=== PATIENT | female | born 1975 | race Caucasian/White ===

== ENCOUNTER 2019-01-24 14:17 | Emergency (ER) | payer OTHER ==
[~2019-01-24] VITALS: Ht 157.5 cm; Wt 77.0 kg
[~2019-01-24 14:17] MED LIST: NITR-58 PO; PHEN-538 PO
[2019-01-24 14:46] VITALS: BP 171/74; PULSE 89; RESP 19; Ht 157.5 cm; Wt 77.0 kg
[2019-01-24] MEDS ORDERED: KETOROLAC 30 MG INJ IM STA (15:14)
[2019-01-24] MEDS ORDERED: HYDROCODONE/APAP (5/325) TAB PO ONE (15:30)
[2019-01-24] MEDS ORDERED: CYCL10TA7 PO (16:09)
[2019-01-24] MEDS ORDERED: TRAM50TA2 PO (16:09)
--- NOTE | 2019-01-24 16:14 | ERD ---
ER Documentation Chief Complaint Chief Complaint NECK AND HEAD PAIN X 6 DAYS HPI 43-year-old female presents with 6-day history of pain in the neck area. She also has pain in the occipital area. She has a history of trauma. Started at work. Denies any specific inciting events. She denies any visual changes, vom iting, deficits, bowel or bladder incontinence, fevers, additional symptoms. ROS All systems reviewed and are negative except as per history of present illness. Medications Home Meds Active Scripts Cyclobenzaprine Hcl* (Cyclobenzaprine Hcl*) 10 Mg Tablet, 10 MG PO TID, #20 TAB Prov:TERRI LOWE MD 01/24/19 Tramadol HCl (Tramadol HCl) 50 Mg Tablet, 50 MG PO Q4 PRN for PAIN, #20 TAB Prov:TERRI LOWE MD 01/24/19 Phenazopyridine Hcl* (Pyridium*) 200 Mg Tab, 200 MG PO TID PRN for PAIN, #12 TAB 0 Refills Prov:IVY RAMSEY PA-C 11/28/15 Nitrofurantoin Monohyd Macrocr* (Macrobid*) 100 Mg Capsr, 100 MG PO BID, #14 CAP 0 Refills Prov:IVY RAMSEY PA-C 11/28/15 Reported Medications [None] No Conflict Check 04/11/12 Allergies Allergies: Coded Allergies: No Known Allergy (Unverified , 01/24/19) PMhx/Soc History of Surgery: Yes (TUBAL LIGATION, left hand) Anesthesia Reaction: No Hx Neurological Disorder: No Hx Respiratory Disorders: No Hx Cardiac Disorders: No Hx Psychiatric Problems: No Hx Miscellaneous Medical Probl: No Hx Alcohol Use: No Hx Substance Use: No Hx Tobacco Use: No FmHx Family History: No diabetes, No coronary disease, No other Physical Exam Vitals Vital Signs Date Temp Pulse Resp B/P (MAP) Pulse Ox O2 O2 Flow FiO2 Time Delivery Rate 01/24/19 99.8 89 19 171/74 99 14:46 (106) Physical Exam Const: No acute distress Head: Atraumatic Eyes: Normal Conjunctiva ENT: Normal External Ears, Nose and Mouth. Neck: Full range of motion. No meningismus. Resp: Clear to auscultation bilaterally Cardio: Regular rate and rhythm, no murmurs Abd: Soft, non tender, non distended. Normal bowel sounds Skin: No petechiae or rashes Back: No midline or flank tenderness Ext: No cyanosis, or edema Neur: Awake and alert Psych: Normal Mood and Affect Results 24 hrs Laboratory Tests Test 01/24/19 15:36 POC Beta HCG, Qualitative NEGATIVE Current Medications Medications Dose Sig/Farida Start Time Status Last (Trade) Ordered Route PRN Stop Time Admin Dose Reason Admin Ketorolac 30 mg ONCE STAT 01/24/19 DC 01/24/19 Tromethamine IM 15:14 15:44 (Toradol) 01/24/19 15:15 1 tab ONCE ONCE 01/24/19 DC 01/24/19 Acetaminophen PO 15:30 15:29 / 01/24/19 15:31 Hydrocodone Bitart ([place] (5/325)) Procedures/MDM X-ray C spine 3V Interpreted by me: Bones: No fracture Joints: No dislocation Foreign body: None impression-no acute findings on C-spine x-ray. Given Toradol 30 mg IM and [place] 5 mg. Patient presents with reproducible cervical paraspinous muscle pain. She has no signs of fracture, dislocation, neurologic deficit, meningismus, additional concerning signs or symptoms. She does not describe cardiac chest pain. She will be treated with tramadol, Flexeril, primary care follow-up and return precautions. She may continue ibuprofen. The patient was stable with no new complaints during the ER course. Clinically, there is no current evidence to suggest meningitis, sepsis, acute abdomen, pneumonia, stroke, acute coronary syndrome, pulmonary embolism, aortic dissection or any other emergent condition appearing to require further evaluation or hospitalization. Patient counseled regarding my diagnostic impression and care plan. Prior to discharge all questions answered. Pt agrees with treatment plan and understands strict return precautions. Pt is instructed to follow up with primary care provider within 24-48 hours. Precautionary instructions provided including instructions to return to the ER if not improving or for any worsening or changing symptoms or concerns. Departure Diagnosis: Primary Impression: Neck pain Condition: Stable Patient Instructions: Neck Pain, No Trauma Referrals: YULIYA LUDWIG (PCP) Additional Instructions: X-ray normal.probablamente musculo o tendones. Examines normal hoy. Cheque otro vez con jensen doctor primario en el proximo espinoza or regresa para mas o nueva simptomas. TERRI LOWE MD Jan 24, 2019 16:14
== END 2019-01-24 16:20 | disposition home or self-care (01) ==
LOC: FTE 14:17
DX: M54.2 Cervicalgia (principal)
CPT/HCPCS: 72040; 81025; 96372; J1885; Z7502; Z7610